=== PATIENT | male | born 1965 | race Caucasian/White ===

== ENCOUNTER 2021-06-07 11:50 | Emergency (ER) | payer SELFPAY ==
[2021-06-07] MEDS ORDERED: Xylocaine 1% w/ Epi 1:100K 10 ML VIAL ONE (13:06)
== END 2021-06-07 14:21 | disposition home or self-care (01) ==
LOC: ERS 11:50
DX: S01.81XA Laceration without foreign body of other part of head, initial encounter (principal); W19.XXXA Unspecified fall, initial encounter; Y92.69 Other specified industrial and construction area as the place of occurrence of the external cause
CPT/HCPCS: 12002

== ENCOUNTER 2022-09-13 07:54 | Emergency (ER) | payer OTHER, SELFPAY ==
[2022-09-13] MEDS ORDERED: Ondansetron PF 4 MG/2 ML Vial ONE (08:02)
[2022-09-13] MEDS ORDERED: Morphine 4 MG/ML VIAL ONE (08:02)
[2022-09-13] MEDS ORDERED: CEFAZOLIN 2 GM VIAL ONE (08:09)
[2022-09-13 08:41] LABS: Hemoglobin 14.9 g/dL (14.0-18.0); Mean Corpuscular HGB CONC 33.1 g/dL (32.0-36.0); Mean Corpuscular Hemoglobin 31.9 pg (27.0-31.0); Mean Corpuscular Volume 96.3 fl (78.0-98.0); Mean Platelet Volume 7.3 fL (7.4-10.4); Platelet Count 324 10x3/uL (130-400); RBC Distribution Width 11.4 % (11.5-14.5); Red Blood Cell (RBC) Count 4.66 mill/uL (4.70-6.10); White Blood Cell (WBC) Count 23.6 10x3/uL (4.8-10.8)
[2022-09-13 08:50] LABS: #Eosinphils 0.1 thou/uL (0.0-0.7); #Lymphocytes 1.2 thou/uL (1.20-3.40); #Monocytes 0.7 thou/uL (0.11-0.59); #Neutrophils 13.7 thou/uL (1.40-6.50); %Basophils 0.1 % (0.0-1.0); %Eosinophils 0.7 % (0.0-10.0); %Lymphocytes 7.8 % (21.0-51.0); %Monocytes 4.1 % (0.0-10.0); %Neutrophils 87.3 % (42.0-75.0); Hemoglobin 13.4 g/dL (14.0-18.0); Mean Corpuscular HGB CONC 32.6 g/dL (32.0-36.0); Mean Corpuscular Volume 95.3 fl (78.0-98.0); Mean Platelet Volume 7.3 fL (7.4-10.4); Platelet Count 249 10x3/uL (130-400); RBC Distribution Width 11.4 % (11.5-14.5); Red Blood Cell (RBC) Count 4.32 mill/uL (4.70-6.10); White Blood Cell (WBC) Count 15.7 10x3/uL (4.8-10.8)
[2022-09-13 08:56] LABS: ALT (SGPT) 273 U/L (8-55); AST (SGOT) 88 U/L (5-34); Albumin 4.5 g/dL (3.5-5.0); Alkaline Phosphatase 83 U/L (40-110); Anion Gap 17 mmol/L (10-20); BUN (Urea Nitrogen) 16 mg/dL (8.4-25.7); Bilirubin, Total 0.5 mg/dL (0.2-1.2); Calc. Creatinine Clearance 0 mL/min (70-130); Calcium 9.7 mg/dL (7.8-10.44); Carbon Dioxide 21 mmol/L (22-29); Chloride 105 mmol/L (98-107); Estimated GFR 82; Globulin 2.9 g/dL (2.4-3.5); Glucose 162 mg/dL (70-105); Potassium 4.5 mmol/L (3.5-5.1); Protein, Total 7.4 g/dL (6.0-8.3); Sodium 138 mmol/L (136-145)
[2022-09-13 09:11] LABS: INR-International Normal Ratio 0.9; Prothrombin Time 12.7 sec (12.0-14.7)
[2022-09-13 09:12] LABS: PTT 24.4 sec (22.9-36.1)
[2022-09-13 09:36] LABS: Band 16 % (5-11); Lymphocytes 16 % (21-51); MDiff Complete? YES; Metamyelocyte 1 % (0-0); Monocytes 3 % (0-10); Neutrophil 64 % (42-75); Platelet Morphology Comment Appears Adequate; RBC Morphology Normal
[2022-09-13] MEDS ORDERED: Ketorolac Tromethamine 30 MG/ML VIAL ONE (10:08)
[2022-09-13] MEDS ORDERED: Bacitracin 1 PK ONE ×2 (10:09→10:46)
[2022-09-13] MEDS ORDERED: Lidocaine 1% PF 5 ML VIAL ONE ×2 (10:46→11:28)
[2022-09-13] MEDS ORDERED: Lidocaine 2% PF 5 ML VIAL ONE (11:28)
[2022-09-13 12:03] LABS: Lactic Acid 1.2 mmol/L (0.5-2.2)
[2022-09-13] MEDS ORDERED: Iopamidol-370 76% 500 ML MDV (1 ML CHARGE) ONE (15:16)
== END 2022-09-13 13:22 | disposition home or self-care (01) ==
LOC: ERS 07:54
DX: S51.011A Laceration without foreign body of right elbow, initial encounter (principal); S81.012A Laceration without foreign body, left knee, initial encounter; S60.512A Abrasion of left hand, initial encounter; S60.511A Abrasion of right hand, initial encounter; S80.812A Abrasion, left lower leg, initial encounter; S80.811A Abrasion, right lower leg, initial encounter; S30.810A Abrasion of lower back and pelvis, initial encounter; S22.050A Wedge compression fracture of T5-T6 vertebra, initial encounter for closed fracture; S09.90XA Unspecified injury of head, initial encounter; D72.829 Elevated white blood cell count, unspecified; V29.608A Unspecified rider of other motorcycle injured in collision with unspecified motor vehicles in traffic accident, initial encounter
CPT/HCPCS: 12002; 36415; 70450; 71045; 71260; 72125; 72170; 74177; 80053; 83605; 85025; 85610; 85730; 86850; 86900; 86901; 96361; 96365; 96375; G0390; J1885; J2001; J2270; J2405; Q9967